=== PATIENT | female | born 1955 | race Caucasian/White ===

== ENCOUNTER 2019-09-08 12:51 | Outpatient (CLI) | payer MEDICARE ==
--- NOTE | 2019-10-05 16:17 | MMO ---
Bilateral MAMMO Bilat Screen [facility]. CLINICAL HISTORY: Patient is 63 years old and is seen for screening. The patient has no family history of breast cancer. The patient has no personal history of cancer. VIEWS: The views performed were: bilateral craniocaudal with tomosynthesis and bilateral mediolateral oblique with tomosynthesis. This study has been interpreted with the assistance of computer-aided detection. MAMMOGRAM FINDINGS: There are scattered fibroglandular densities. There are benign appearing calcifications seen in both breasts. There are no suspicious masses, suspicious calcifications, or new areas of architectural distortion. IMPRESSION: THERE IS NO MAMMOGRAPHIC EVIDENCE OF MALIGNANCY. A ROUTINE FOLLOW-UP MAMMOGRAM IN 1 YEAR IS RECOMMENDED. THE RESULTS OF THIS EXAM WERE SENT TO THE PATIENT. ACR BI-RADS Category 2 - Benign finding MAMMOGRAPHY NOTE: 1. A negative mammogram report should not delay a biopsy if a dominant of clinically suspicious mass is present. 2. Approximately 10% to 15% of breast cancers are not detected by mammography. 3. Adenosis and dense breasts may obscure an underlying neoplasm. Reported by: RITA BAH MD Electonically Signed: [id number]
== END 2019-09-08 12:52 | disposition home or self-care (01) ==
LOC: BICMAMMO 12:51
PROVIDERS: ATTEND Family Medicine
DX: Z12.31 Encounter for screening mammogram for malignant neoplasm of breast (principal)
CPT/HCPCS: 77063; 77067

== ENCOUNTER 2019-10-13 09:05 | Outpatient (CLI) | payer MEDICARE ==
--- NOTE | 2019-10-13 11:06 | BD ---
DEXA SCAN: INDICATIONS: Asymptomatic postmenopausal state; osteoporosis screening. COMPARISON: None. FINDINGS: LUMBAR SPINE BMD (g/cm2) T-SCORE Z-SCORE L1 0.892 -0.9 0.5 L2 0.913 -1.0 0.5 L3 1.124 0.4 2.0 L4 1.089 0.3 2.0 L1-L4 0.989 0.5 1.1 LEFT FEMORAL NECK 0.655 -1.7 -0.3 LEFT TOTAL HIP 0.937 0.0 1.1 The WHO Fracture Risk Assessment tool estimates the then year fracture risk for a major osteoporotic fracture for this patient as 9% and for a hip fracture as 1.6%. IMPRESSION: Based on WHO criteria the patient's bone mineral density is osteopenic. The patient has a moderate ri sk for fracture. POS: [facility]
== END 2019-10-13 09:06 | disposition home or self-care (01) ==
LOC: BICMAMMO 09:05
PROVIDERS: ATTEND Family Medicine
DX: Z13.820 Encounter for screening for osteoporosis (principal); Z78.0 Asymptomatic menopausal state; M85.80 Other specified disorders of bone density and structure, unspecified site
CPT/HCPCS: 77080

== ENCOUNTER 2019-10-16 09:20 | Outpatient (CLI) | payer MEDICARE ==
--- NOTE | 2019-10-16 11:09 | CT ---
EXAM: CT chest without contrast per low-dose cancer screening protocol HISTORY: History of smoking and nicotine dependence COMPARISON: None TECHNIQUE: Multiple contiguous axial images were obtained in a CT of the chest without contrast per l ow-dose cancer screening protocol. Sagittal and coronal reformats were performed. FINDINGS: Pulmonary nodules: There areas of peripheral nodularity in the left thorax measuring up to 6 mm in si ze. These are abutting the pleura adjacent to the superior aspect of the left upper lobe. No other pulmonary nodules are seen. No focal infiltrates are seen. Pleural space: No pneumothorax or pleural effusion are seen. Heart: The heart is normal in size. Mediastinum: No hilar or mediastinal lymphadenopathy appreciated on this limited noncontrast examinat ion. Bones: Degenerative changes in the spine.. Visualized subdiaphragmatic structures: Partial visualization of left renal cyst. The gallbladder has been removed.. IMPRESSION: Lung RADS category 2-benign. A follow-up low-dose chest CT in one year is recommended to ensure stabi lity of the peripheral areas of nodularity.
== END 2019-10-16 09:21 | disposition home or self-care (01) ==
LOC: CT 09:20
PROVIDERS: ATTEND Family Medicine
DX: Z12.2 Encounter for screening for malignant neoplasm of respiratory organs (principal); F17.210 Nicotine dependence, cigarettes, uncomplicated
CPT/HCPCS: G0297

== ENCOUNTER 2021-04-23 09:31 | Outpatient (CLI) | payer MEDICARE | END 2021-04-23 09:32 | disposition home or self-care (01) | LOC: BICMAMMO 09:31 | PROVIDERS: ATTEND Family Medicine | DX: Z12.31 Encounter for screening mammogram for malignant neoplasm of breast (principal) | CPT/HCPCS: 77063; 77067 ==

== ENCOUNTER 2021-04-23 09:59 | Outpatient (CLI) | payer MEDICARE | END 2021-04-23 10:00 | disposition home or self-care (01) | LOC: BICCT 09:59 | PROVIDERS: ATTEND Family Medicine | DX: Z12.2 Encounter for screening for malignant neoplasm of respiratory organs (principal); F17.210 Nicotine dependence, cigarettes, uncomplicated; R91.1 Solitary pulmonary nodule | CPT/HCPCS: 71271 ==

== ENCOUNTER 2021-12-01 11:14 | Outpatient (CLI) | payer MEDICARE | END 2021-12-01 11:15 | disposition home or self-care (01) | LOC: SCSRAD 11:14 | PROVIDERS: ATTEND Family Medicine | DX: M25.512 Pain in left shoulder (principal) ==

== ENCOUNTER 2023-11-19 10:02 | Outpatient (CLI) | payer MEDICARE | END 2023-11-19 10:03 | disposition home or self-care (01) | LOC: BICMAMMO 10:02 | PROVIDERS: ATTEND Family Medicine | DX: Z12.31 Encounter for screening mammogram for malignant neoplasm of breast (principal); Z13.820 Encounter for screening for osteoporosis; M85.89 Other specified disorders of bone density and structure, multiple sites; Z78.0 Asymptomatic menopausal state | CPT/HCPCS: 77063; 77067; 77080 ==

== ENCOUNTER 2023-12-10 11:03 | Outpatient (CLI) | payer MEDICARE | END 2023-12-10 11:04 | disposition home or self-care (01) | LOC: BICCT 11:03 | PROVIDERS: ATTEND Family Medicine | DX: Z12.2 Encounter for screening for malignant neoplasm of respiratory organs (principal); F17.210 Nicotine dependence, cigarettes, uncomplicated | CPT/HCPCS: 71271 ==

== ENCOUNTER 2025-08-09 09:30 | Outpatient (CLI) | payer OTHER | END 2025-08-09 09:31 | disposition home or self-care (01) | LOC: BICCT 09:30 | PROVIDERS: ATTEND Family Medicine | DX: Z12.31 Encounter for screening mammogram for malignant neoplasm of breast (principal); Z12.2 Encounter for screening for malignant neoplasm of respiratory organs; Z87.891 Personal history of nicotine dependence | CPT/HCPCS: 71271; 77063; 77067 ==